=== PATIENT | female | born 1985 | race Caucasian/White ===

== ENCOUNTER 2018-03-25 13:34 | Inpatient (IN) | payer OTHER ==
[2018-03-25] MEDS ORDERED: CLINDAMYCIN 900 MG/D5W (PMX) 50 ML IVPB (20:04)
[2018-03-25] MEDS: CLINDAMYCIN 900 MG/D5W (PMX) 50 ML IVPB (20:08)
[2018-03-25] MEDS: LACTATED RINGER'S 1,000 ML IV (21:00)
[2018-03-25] MEDS: LACTATED RINGER'S 1,000 ML IV* (21:50)
[2018-03-25] MEDS ORDERED: OXYTOCIN 30 UNITS/LR 500 ML IV ×2 (22:00)
[2018-03-25] MEDS ORDERED: BUTORPHANOL 2 MG INJ IV (22:00)
[2018-03-25] MEDS ORDERED: MISOPROSTOL 200 MCG TAB PR (22:00)
[2018-03-25] MEDS ORDERED: LIDOCAINE 1% (MPF) 30 ML INJ INJ (22:00)
[2018-03-25] MEDS ORDERED: CLINDAMYCIN 900 MG/D5W (PMX) 50 ML IV (22:00)
[2018-03-25] MEDS ORDERED: CARBOPROST 250 MCG INJ IM (22:00)
[2018-03-25] MEDS ORDERED: METHYLERGONOVINE 0.2 MG INJ IM (22:00)
[2018-03-25] MEDS: ACETAMINOPHEN 325 MG TAB PO (22:20)
[2018-03-25] MEDS: OXYTOCIN 30 UNITS/LR 500 ML IV (23:02)
[2018-03-25 23:50] LABS: WHITE BLOOD COUNT 8.2 10^3/ul (4.8-10.8)
[2018-03-25 23:50] LABS: ADD MAN DIFF? NO; BASOPHILS % 0.2 % (0.0-2.0); EOSINOPHILS % 0.5 % (0.0-7.0); HEMATOCRIT 36.8 % (37.0-47.0); HEMOGLOBIN 12.6 g/dl (12.0-16.0); LYMPHOCYTES % 23.8 % (15.0-51.0); MEAN CORPUSCULAR HEMOGLOBIN 33.3 pg (29.0-33.0); MEAN CORPUSCULAR HGB CONC 34.2 g/dl (32.0-37.0); MEAN CORPUSCULAR VOLUME 97.4 fl (82.0-101.0); MEAN PLATELET VOLUME 10.1 fl (7.4-10.4); MONOCYTE # 0.6 10^3/ul (0.3-0.9); MONOCYTES % 7.1 % (0.0-11.0); NEUTROPHIL # 5.6 10^3/ul (1.6-7.5); NEUTROPHILS % 67.9 % (39.0-77.0); PLATELET COUNT 207 10^3/UL (140-415); RED BLOOD COUNT 3.78 10^6/ul (4.20-5.40); RED CELL DISTRIBUTION WIDTH 14.4 % (11.5-14.5)
[2018-03-25 23:55] LABS: INR 0.91; PROTIME 12.3 Sec (11.9-14.9)
[2018-03-25 23:56] LABS: PARTIAL THROMBOPLASTIN TIME 27.1 Sec (25.0-35.0)
[2018-03-26] MEDS ORDERED: FENTAnyl 2MCG/ML-ROPIV 0.2% 100 ML (00:13)
[2018-03-26 00:26] LABS: HEPATITIS B SURFACE ANTIGEN NEGATIVE (NEGATIVE)
[2018-03-26] MEDS ORDERED: NALOXONE (0.4 MG/ML) INJ IV (00:30)
[2018-03-26] MEDS ORDERED: FENTAnyl 2MCG/ML-ROPIV 0.2% 100 ML BAG EPI (00:30)
[2018-03-26] MEDS: OXYTOCIN 30 UNITS/LR 500 ML IV ×2 (01:56→09:40)
[2018-03-26] MEDS: LACTATED RINGER'S 1,000 ML IV ×2 (04:58→07:42)
[2018-03-26] MEDS: CLINDAMYCIN 900 MG/D5W (PMX) 50 ML IVPB (05:46)
[2018-03-26] MEDS: IBUPROFEN 600 MG TAB PO ×3 (05:46→18:03)
[2018-03-26] MEDS: LACTATED RINGER'S 1,000 ML IV* (05:50)
[2018-03-26] MEDS ORDERED: METHYLERGONOVINE 0.2 MG INJ IM ×2 (10:00)
[2018-03-26] MEDS ORDERED: NACL 0.9% 3 ML SYG IV ×2 (10:00)
[2018-03-26] MEDS ORDERED: HYDROCODONE/APAP (5/325) TAB PO (10:00)
[2018-03-26] MEDS ORDERED: MISOPROSTOL 200 MCG TAB PR ×2 (10:00)
[2018-03-26] MEDS ORDERED: CARBOPROST 250 MCG INJ IM ×2 (10:00)
[2018-03-26] MEDS ORDERED: OXYTOCIN 30 UNITS/LR 500 ML IV ×2 (10:00)
[2018-03-26] MEDS ORDERED: LANOLIN 7 GM TUBE TOP (10:00)
[2018-03-26] MEDS: BENZOCAINE 20% 56 ML SPRAY TOP (10:19)
[2018-03-26] MEDS: DIBUCAINE 1% 30 GM OINT PR (10:19)
[2018-03-26] MEDS: WITCH HAZEL/GLYCERIN PAD PR (10:20)
[2018-03-26] MEDS: SENNA/DOCUSATE NA (8.6MG/50MG) TAB PO ×2 (10:20→22:34)
[2018-03-26] MEDS: HYDROCODONE/APAP (5/325) TAB PO (10:22)
[2018-03-26] MEDS: PANTOPRAZOLE (EC) 40 MG TAB PO (12:34)
[2018-03-26 15:12] LABS: RAPID PLASMA REAGIN NONREACTIVE (NR)
[2018-03-27] MEDS: IBUPROFEN 600 MG TAB PO ×3 (01:42→12:21)
[2018-03-27] MEDS: PANTOPRAZOLE (EC) 40 MG TAB PO (05:39)
[2018-03-27] MEDS: SENNA/DOCUSATE NA (8.6MG/50MG) TAB PO (08:52)
[2018-03-27 08:53] LABS: ADD MAN DIFF? NO
[2018-03-27 08:55] LABS: WHITE BLOOD COUNT 8.5 10^3/ul (4.8-10.8)
[2018-03-27 08:55] LABS: BASOPHILS % 0.4 % (0.0-2.0); EOSINOPHILS # 0.1 10^3/ul (0.0-0.5); EOSINOPHILS % 1.2 % (0.0-7.0); HEMATOCRIT 38.2 % (37.0-47.0); HEMOGLOBIN 12.6 g/dl (12.0-16.0); LYMPHOCYTES # 2.2 10^3/ul (0.8-2.9); LYMPHOCYTES % 26.4 % (15.0-51.0); MEAN CORPUSCULAR HEMOGLOBIN 32.1 pg (29.0-33.0); MEAN CORPUSCULAR VOLUME 97.4 fl (82.0-101.0); MEAN PLATELET VOLUME 10.3 fl (7.4-10.4); MONOCYTE # 0.7 10^3/ul (0.3-0.9); MONOCYTES % 7.6 % (0.0-11.0); NEUTROPHIL # 5.4 10^3/ul (1.6-7.5); NEUTROPHILS % 63.6 % (39.0-77.0); PLATELET COUNT 161 10^3/UL (140-415); RED BLOOD COUNT 3.92 10^6/ul (4.20-5.40); RED CELL DISTRIBUTION WIDTH 14.6 % (11.5-14.5)
[2018-03-27] MEDS: HYDROCODONE/APAP (5/325) TAB PO (11:23)
[2018-03-28] MEDS ORDERED: DIPHTH/TET/ACEL PERTUSS (ADULT) 0.5 ML VIAL IM* (09:00)
== END 2018-03-27 16:35 | disposition home or self-care (01) | DRG 775 ==
LOC: OBT 13:34 → PP1 03-26 02:58 → L-D 13:34 → OBT 15:50 → L-D 15:24
PROVIDERS: Obstetrics & Gynecology
PROC: 10E0XZZ Delivery of Products of Conception, External Approach (ICD-10-PCS; principal; 2018-03-25)
DX: O69.81X0 Labor and delivery complicated by cord around neck, without compression, not applicable or unspecified (principal); Z3A.39 39 weeks gestation of pregnancy; Z37.0 Single live birth
CPT/HCPCS: 62319; 85025; 85610; 85730; 86592; 86850; 86900; 86901; 87340

== ENCOUNTER 2018-08-25 06:20 | Day surgery (SDC) | payer OTHER ==
[~2018-08-25 06:20] MED LIST: CLINDAMYCIN 900 MG/D5W (PMX) 50 ML IVPB; LACTATED RINGER'S 1,000 ML IV*
[2018-08-25] MEDS ORDERED: CLINDAMYCIN 900 MG/50 ML D5W IVPB IVPB (07:00)
[2018-08-25 07:35] LABS: ADD MAN DIFF? NO
[2018-08-25 07:36] LABS: WHITE BLOOD COUNT 5.4 10^3/ul (4.8-10.8)
[2018-08-25 07:36] LABS: BASOPHILS % 0.6 % (0.0-2.0); EOSINOPHILS # 0.1 10^3/ul (0.0-0.5); EOSINOPHILS % 1.7 % (0.0-7.0); HEMATOCRIT 42.1 % (37.0-47.0); HEMOGLOBIN 14.2 g/dl (12.0-16.0); LYMPHOCYTES # 2.1 10^3/ul (0.8-2.9); LYMPHOCYTES % 39.6 % (15.0-51.0); MEAN CORPUSCULAR HEMOGLOBIN 31.2 pg (29.0-33.0); MEAN CORPUSCULAR HGB CONC 33.7 g/dl (32.0-37.0); MEAN CORPUSCULAR VOLUME 92.5 fl (82.0-101.0); MONOCYTE # 0.4 10^3/ul (0.3-0.9); MONOCYTES % 6.7 % (0.0-11.0); NEUTROPHIL # 2.8 10^3/ul (1.6-7.5); NEUTROPHILS % 51.2 % (39.0-77.0); PLATELET COUNT 262 10^3/UL (140-415); RED BLOOD COUNT 4.55 10^6/ul (4.20-5.40); RED CELL DISTRIBUTION WIDTH 12.1 % (11.5-14.5)
[2018-08-25] MEDS ORDERED: LIDOCAINE 2% (SDV) 5 ML INJ (07:38)
[2018-08-25] MEDS ORDERED: PROPOFOL 20 ML (07:38)
[2018-08-25] MEDS ORDERED: NEOSTIGMINE 3 MG/3 ML SYRINGE ×2 (07:38→08:15)
[2018-08-25] MEDS ORDERED: SUCCINYLCHOLINE CHLORIDE 100 MG/5 ML SYG IV (07:38)
[2018-08-25] MEDS ORDERED: ROCURONIUM 50 MG INJ (07:38)
[2018-08-25] MEDS ORDERED: GLYCOPYRROLATE 1 MG INJ ×2 (07:38→08:00)
[2018-08-25 07:44] LABS: ANION GAP 10 (5-13); BLOOD UREA NITROGEN 20 mg/dl (7-20); CALCIUM 9.9 mg/dl (8.4-10.2); CARBON DIOXIDE 26 mmol/L (21-31); CHLORIDE 105 mmol/L (97-110); CREATININE 0.65 mg/dl (0.44-1.00); Estimated GFR > 60 mL/min (>60); GLUCOSE 92 mg/dl (70-220); POTASSIUM 4.4 mmol/L (3.5-5.1); SODIUM 141 mmol/L (135-144)
[2018-08-25 07:54] LABS: INR 0.88; PARTIAL THROMBOPLASTIN TIME 27.1 Sec (23.0-35.0); PT RATIO 0.9
[2018-08-25] MEDS ORDERED: KETOROLAC 30 MG INJ (08:15)
[2018-08-25] MEDS: BUPIVACAINE 0.5%/EPI (SDV) 30 ML INJ INJ (08:20)
[2018-08-25] MEDS ORDERED: BUPIVACAINE 0.5%/EPI (SDV) 30 ML INJ (08:21)
[2018-08-25] MEDS ORDERED: ONDANSETRON 4 MG INJ IV (08:30)
[2018-08-25] MEDS ORDERED: DIPHENHYDRAMINE 50 MG INJ IV (08:30)
[2018-08-25] MEDS ORDERED: METOCLOPRAMIDE 10 MG INJ IV (08:30)
[2018-08-25] MEDS ORDERED: METOCLOPRAMIDE 10 MG INJ (08:32)
[2018-08-25] MEDS ORDERED: ONDANSETRON 4 MG INJ (08:32)
[2018-08-25] MEDS: MIDAZOLAM 1 MG/ML 2 ML INJ IV (09:02)
[2018-08-25] MEDS: KETOROLAC 15 MG INJ IV (09:03)
== END 2018-08-25 10:40 | disposition home or self-care (01) ==
LOC: SDS 06:20
DX: Z30.2 Encounter for sterilization (principal); E66.9 Obesity, unspecified
CPT/HCPCS: 58661; 80048; 84702; 85025; 85610; 85730; 88302